=== PATIENT | female | born 1965 | race Caucasian/White ===

== ENCOUNTER 2023-08-19 17:48 | Emergency (ER) | payer MEDICARE, OTHER ==
[~2023-08-19] VITALS: Ht 160 cm; Wt 90.7 kg
[2023-08-19 20:16] VITALS: BP 133/88; TEMP 98; O2SAT 97
== END 2023-08-19 20:16 | disposition home or self-care (01) ==
LOC: ER 17:53
DX: Q17.3 Other misshapen ear (principal)
CPT/HCPCS: A4606; A4663